=== PATIENT | female | born 1995 | race Caucasian/White ===

== ENCOUNTER 2019-10-31 17:34 | Emergency (ER) | payer SELFPAY ==
--- NOTE | 2019-10-31 17:43 | Emergency Department Report ---
Blank Doc - Documentation Documentation: 24-year-old female that presents with left sided chest pain without SOB. This initial assessment/diagnostic orders/clinical plan/treatment(s) is/are subject to change based on patient's health status, clinical progression and re- assessment by fellow clinical providers in the ED. Further treatment and workup at subsequent clinical providers discretion. Patient/guardians urged not to elope from the ED as their condition may be serious if not clinically assessed and managed. Initial orders include: 1- Patient sent to [facility] for further evaluation and treatment 2- CXR 3- EKG
--- NOTE | 2019-10-31 18:17 | XRay Report ---
CHEST PA AND LATERAL VIEWS INDICATION: Chest pain. COMPARISON: None. FINDINGS: Support devices: None. Heart: Within normal limits. Lungs/Pleura: No acute pulmonary or pleural findings. IMPRESSION: 1. No acute findings. Signer Name: Bobo Arias MD Signed: 10/31/2019 6:12 PM Workstation Name: [id number]
--- NOTE | 2019-10-31 20:51 | Emergency Department Report ---
ED Chest Pain HPI - General Chief Complaint: Chest Pain Stated Complaint: CHEST PAIN Time Seen by Provider: 10/31/19 17:42 Source: patient Mode of arrival: Ambulatory Limitations: No Limitations - History of Present Illness Initial Comments: 24 year old [place] female presents to the emergency room for chest pain in the left upper chest and right lower chest with 2 episodes one last night and one today while she was walking. Patient denies any nausea vomiting no shortness of breath no radiation of pain to the jaw back or shoulder. She reports that the pain was burning and lasts about 20 minutes and dissipated. Patient reports pain with with exertion. Patient denies smoking cigarettes denies any recent travels reports is on no control denies any cancers. Patient has no past medical history patient denies any recent travels. MD Complaint: chest pain - Related Data Allergies Allergy/AdvReac Type Severity Reaction Status Date / Time No Known Allergies Allergy Unverified 10/31/19 17:40 Heart Score - HEART Score History: Slightly suspicious EKG: Normal Age: < 45 Risk factors: No known risk factors Troponin: < normal limit HEART Score: 0 ED Review of Systems ROS: Stated complaint: CHEST PAIN Other details as noted in HPI Comment: All other systems reviewed and negative ED Past Medical Hx - Past Medical History Previous Medical History?: No - Surgical History Past Surgical History?: No - Social History Smoking Status: Never Smoker Substance Use Type: None ED Physical Exam - General Limitations: No Limitations General appearance: alert, in no apparent distress - Head Head exam: Present: atraumatic, normocephalic - Eye Eye exam: Present: normal appearance - ENT ENT exam: Present: mucous membranes moist - Neck Neck exam: Present: normal inspection - Respiratory Respiratory exam: Present: normal lung sounds bilaterally. Absent: respiratory distress - Cardiovascular Cardiovascular Exam: Present: regular rate, normal rhythm. Absent: systolic murmur, diastolic murmur, rubs, gallop - GI/Abdominal GI/Abdominal exam: Present: soft, normal bowel sounds - Extremities Exam Extremities exam: Present: normal inspection - Back Exam Back exam: Present: normal inspection - Neurological Exam Neurological exam: Present: alert, oriented X3 - Psychiatric Psychiatric exam: Present: normal affect, normal mood - Skin Skin exam: Present: warm, dry, intact, normal color. Absent: rash ED Course Vital Signs 10/31/19 10/31/19 17:38 17:42 Temperature 97.7 F 97.7 F Pulse Rate 88 79 Respiratory 16 16 Rate Blood Pressure 100/62 100/62 O2 Sat by Pulse 95 97 Oximetry ED Medical Decision Making - Lab Data Result diagrams: 10/31/19 20:42 10/31/19 20:42 Laboratory Tests 10/31/19 10/31/19 20:42 20:42 WBC 8.8 RBC 4.65 Hgb 14.0 Hct 40.8 MCV 88 MCH 30 MCHC 34 RDW 14.2 Plt Count 240 Lymph % (Auto) 38.0 H Osborne % (Auto) 6.7 Eos % (Auto) 4.5 H Baso % (Auto) 0.7 Lymph # 3.3 Osborne # 0.6 Eos # 0.4 Baso # 0.1 Seg Neutrophils % 50.1 Seg Neutrophils # 4.4 Sodium 140 Potassium 4.0 Chloride 104.7 Carbon Dioxide 22 Anion Gap 17 BUN 7 Creatinine 0.7 Estimated GFR > 60 BUN/Creatinine Ratio 10 Glucose 89 Calcium 9.2 Troponin T < 0.010 - Radiology Data Radiology results: report reviewed Patient: PARVEZ MICHAUD MR#: [id number] 15 : 1995 Acct:[id number] Age/Sex: 24 / F ADM Date: 10/31/19 Loc: ED Attending Dr: Ordering Physician: AUDIE MALDONADO NP Date of Service: 10/31/19 Procedure(s): XR chest routine 2V Accession Number(s): [id number] cc: AUDIE MALDONADO NP Fluoro Time In Minutes: CHEST PA AND LATERAL VIEWS INDICATION: Chest pain. COMPARISON: None. FINDINGS: Support devices: None. Heart: Within normal limits. Lungs/Pleura: No acute pulmonary or pleural findings. IMPRESSION: 1. No acute findings. Signer Name: Bobo Arias MD Signed: 10/31/2019 6:12 PM Workstation Name: [id number] Transcribed By: MAT Dictated By: Bobo Arias MD Electronically Authenticated By: Bobo Arias MD Signed Date/Time: 10/31/191811 DD/ 11 TD/TT: - Medical Decision Making 24 year old [place] female presents to the emergency room for chest pain in the left upper chest and right lower chest with 2 episodes one last night and one today while she was walking. Patient denies any nausea vomiting no shortness of breath no radiation of pain to the jaw back or shoulder. She reports that the pain was burning and lasts about 20 minutes and dissipated. Patient reports pain with with exertion. Patient denies smoking cigarettes denies any recent travels reports is on no control denies any cancers. Patient has no past medical history patient denies any recent travels. Critical care attestation.: If time is entered above; I have spent that time in minutes in the direct care of this critically ill patient, excluding procedure time. ED Disposition Clinical Impression: Atypical chest pain Disposition: DC-01 TO HOME OR SELFCARE Is pt being admited?: No Does the pt Need Aspirin: No Condition: Stable Instructions: Chest Pain (ED) Additional Instructions: Chest x-ray negative EKG negative for any acute GA, cardiac enzymes are negative. Please follow up with your primary care provider in the next 2-3 days if symptoms persist or gets worse. Referrals: PRIMARY CARE, [Primary Care Provider] - 3-5 Days Forms: AMA Form, Work/School Release Form(ED)
[2019-10-31 21:04] LABS: Basophils # (Auto) 0.1 K/mm3 (0.0-0.1); Basophils % (Auto) 0.7 % (0.0-1.8); Eosinophils # (Auto) 0.4 K/mm3 (0.0-0.4); Eosinophils % (Auto) 4.5 % (0.0-4.3); Hematocrit 40.8 % (30.3-42.9); Lymphocytes # (Auto) 3.3 K/mm3 (1.2-5.4); Mean Corpuscular HGB Conc 34 % (30-34); Mean Corpuscular Volume 88 fl (79-97); Monocytes # (Auto) 0.6 K/mm3 (0.0-0.8); Monocytes % (Auto) 6.7 % (0.0-7.3); Platelet Count 240 K/mm3 (140-440); Red Blood Count 4.65 M/mm3 (3.65-5.03); Red Cell Distribution Width 14.2 % (13.2-15.2)
[2019-10-31 21:19] LABS: BUN/Creatinine Ratio 10; Blood Urea Nitrogen 7 mg/dL (7-17); Calcium 9.2 mg/dL (8.4-10.2); Hemolysis Index 22
[2019-11-01 04:09] VITALS: BP 100/68
== END 2019-10-31 23:40 | disposition home or self-care (01) ==
LOC: ED 17:34
DX: R07.89 Other chest pain (principal)
CPT/HCPCS: 36415; 71046; 80048; 84484; 85025; 93005